=== PATIENT | female | born 1965 | race Caucasian/White ===

== ENCOUNTER 2020-04-01 18:39 | Emergency (ER) | payer OTHER, SELFPAY ==
--- NOTE | ~2020-04-01 | CT_ITS ---
EXAMINATION: CT facial bones wo con DATE: 04/01/2020 20:14 INDICATION: Face injury. TECHNIQUE: Computed tomography (CT) of the facial bones and maxillofacial region was performed withou t intravenous contrast. Automated exposure control and iterative reconstruction technique were employ ed. The dose-length product was 506.25 mGy-cm. COMPARISON: None. FINDINGS: There is mild mucosal thickening in the paranasal sinuses. There are fractures of the nasal bones and left nasal process of maxilla. Some of the fracture fragments demonstrate leftward and inf erior angulation. There is a 2 mm density at the skin on the right side of the nose. There are periap ical lucencies around the roots of tooth 25. There is a carious lesion of tooth 17. There is mild cer vical spondylosis. IMPRESSION: 1. Fractures of the nasal bones and left nasal process of maxilla. 2. 2 mm density at the skin on the right side of the nose, which may be a foreign body. 3. Dental disease. Reviewed, dictated and finalized at location A. IMPRESSION: 1. Fractures of the nasal bones and left nasal process of maxilla. 2. 2 mm density at the skin on the right side of the nose, which may be a forei gn body. 3. Dental disease.
--- NOTE | ~2020-04-01 | CT_ITS ---
EXAMINATION: CT brain wo con DATE: 04/01/2020 20:14 INDICATION: Headache. Fall. TECHNIQUE: Computed tomography (CT) of the head was performed without intravenous contrast. The mA wa s adjusted according to patient size. Iterative reconstruction technique was employed. The dose-lengt h product was 605.33 mGy-cm. COMPARISON: None FINDINGS: There is no intracranial hemorrhage, acute infarction, or abnormal intracranial mass lesion . The ventricles are normal in size. There is mild mucosal thickening in the paranasal sinuses. There are fractures of the nasal bones. The mastoid air cells are normal. IMPRESSION: 1. Normal brain. 2. Fractures of the nasal bones. Reviewed, dictated and finalized at location A.
[2020-04-01 18:50] VITALS: BP 156/71; PULSE 110; RESP 20; TEMP 36.8; O2SAT 89
[2020-04-01] MEDS: KETOROLAC (*BKC) 60 MG/2 ML VIAL IM (20:38)
[2020-04-01] MEDS: TETANUS,DIPHTHERIA,AC PERTUSSIS ADULT (0.5 ML) BOOSTRIX IM (20:45)
--- NOTE | 2020-04-01 20:55 | ED.GENADULT ---
HPI - General Adult General Chief complaint: Head Injury Stated complaint: fall Time Seen by Provider: 04/01/20 18:52 Source: patient Mode of arrival: ambulatory Limitations: no limitations History of Present Illness HPI narrative: Patient is a 55-year-old female who presents to emergency department for evaluation of facial injuries after tripping and falling forward and striking the face patient denies loss of consciousness patient presents with bruising of the nasal bridge and face noting mild aching pain patient has not taken anything for pain and presents per private vehicle patient notes pain to the nasal bridge in the lip denies other injuries or complaints specifically no neck pain or extremity injury or recent illness or sick contacts Related Data Allergies Allergy/AdvReac Type Severity Reaction Status Date / Time No Known Allergies Allergy Verified 04/01/20 18:59 Review of Systems Review of Systems: All systems reviewed & are unremarkable except as noted in HPI and below PMFSH Social History Social History (Updated 04/01/20 @ 20:57 by Marcus Pillai PA-C) Smoking status: Current every day smoker Gender identity (if verbalized by the patient): Female Exam Narrative: Exam Narrative: GENERAL: Well-appearing, well-nourished, and in no acute distress. HEAD: Normocephalic, swelling over the nasal bridge tenderness and swelling over the anterior upper lip EYES: PERRLA and EOMI. ENT: Nares clear, no rhinorrhea or epistaxis. Mucous membranes moist. Oropharynx without tonsillar hypertrophy exudate or other lesions. CHEST: Clear to auscultation. No respiratory distress. No wheezes rales or rhonchi HEART: Regular rate and rhythm. No murmur heard. EXTREMITIES: Normal range of motion. No edema. No cervical spine tenderness to palpation SKIN: Warm, dry, no rash. NEURO: No focal deficits. Alert and oriented x3. Cranial nerves II through XII grossly intact. Normal speech and gait PSYCH: Normal mood and affect. Course Course Emergency Course: Patient in the room in no distress aware of case findings treatment plan and diagnosis agreeing to follow-up as directed or to return if symptoms worsen or concerns Vital Signs Vital signs: Vital Signs Temperature 98.3 F 04/01/20 18:50 Pulse Rate 110 H 04/01/20 18:50 Respiratory Rate 20 04/01/20 18:50 Blood Pressure 156/71 H 04/01/20 18:50 Pulse Oximetry 89 L 04/01/20 18:50 Temperature 98.3 F 04/01/20 18:50 Pulse Rate 110 H 04/01/20 18:50 Respiratory Rate 20 04/01/20 18:50 Blood Pressure 156/71 H 04/01/20 18:50 Pulse Oximetry 89 L 04/01/20 18:50 Medical Decision Making MDM Narrative Medical decision making narrative: Patients injury or pain is consistent with musculoskeletal etiology. No signs of neurological or vascular compromise on exam. Compartments and tisues are soft without signs of compartment syndrome. Pain is felt appropriate for further evaluation on an outpatient basis. Vital Signs Vital Signs: Vital Signs Temperature 98.3 F 04/01/20 18:50 Pulse Rate 110 H 04/01/20 18:50 Respiratory Rate 20 04/01/20 18:50 Blood Pressure 156/71 H 04/01/20 18:50 Pulse Oximetry 89 L 04/01/20 18:50 Temperature 98.3 F 04/01/20 18:50 Pulse Rate 110 H 04/01/20 18:50 Respiratory Rate 20 04/01/20 18:50 Blood Pressure 156/71 H 04/01/20 18:50 Pulse Oximetry 89 L 04/01/20 18:50 Imaging Data Radiologist's impression: ITS Impressions Head CT 04/01/20 20:16 IMPRESSION: 1. Normal brain. 2. Fractures of the nasal bones. Face CT 04/01/20 20:17 IMPRESSION: 1. Fractures of the nasal bones and left nasal process of maxilla. 2. 2 mm density at the skin on the right side of the nose, which may be a foreign body. 3. Dental disease. Discharge Plan Discharge Clinical Impression: Closed head injury Patient Disposition: Home, Self-Care Condition: Stable Instructions: Antibiotic Form, Head
[2020-04-01 21:28] VITALS: BP 148/70; PULSE 99; RESP 20; O2SAT 99
== END 2020-04-01 21:34 | disposition home or self-care (01) ==
PROVIDERS: Emergency Provider Emergency Medicine
DX: S02.2XXA Fracture of nasal bones, initial encounter for closed fracture (principal); Z23 Encounter for immunization; W01.0XXA Fall on same level from slipping, tripping and stumbling without subsequent striking against object, initial encounter
CPT/HCPCS: 70450; 70486; 90471; 90715; 96372; 99284; J1885